=== PATIENT | female | born 1990 | race Caucasian/White ===

== ENCOUNTER 2023-08-07 18:17 | Emergency (ER) | payer OTHER ==
[2023-08-07 18:29] VITALS: BP 104/60; PULSE 72; RESP 18; TEMP 98.5; BMI 34.0
[2023-08-07] MEDS ORDERED: ACETAMINOPHEN 500 MG TABLET (FP) ONE (20:29)
[2023-08-07 20:33] LABS: BASO % 3.7 % (0-2.0); HEMATOCRIT 36.4 % (32.4-45.2); HEMOGLOBIN 12.2 GM/dL (10.7-15.3); LYMPH % 24.6 % (8-40); MCH 27.9 pg (25.7-33.7); MCHC 33.4 g/dl (32.0-36.0); MEAN CELL VOLUME 83.4 fl (80-96); MEAN PLT VOLUME 9.6 fl (7.5-11.1); MONO % 5.4 % (3.8-10.2); NEUT % 65.3 % (42.8-82.8); PLATELET COUNT 194 10^3/uL (134-434); RBC 4.36 M/mm3 (3.60-5.2); RDW 14.9 % (11.6-15.6); WHITE BLOOD COUNT 7.4 K/mm3 (4.0-10.0)
[2023-08-07] MEDS: ACETAMINOPHEN 500 MG TABLET (FP) PO ONE (20:34)
[2023-08-07 20:56] LABS: POTASSIUM 4.4 mmol/L (3.5-5.1)
[2023-08-07 20:58] LABS: CALCIUM 8.9 mg/dL (8.5-10.1)
[2023-08-07 20:59] LABS: ALBUMIN 3.5 g/dl (3.4-5.0); BLOOD UREA NITROGEN 15.7 mg/dL (7-18); MAGNESIUM 2.3 mg/dL (1.8-2.4)
[2023-08-07 21:02] LABS: CREATININE 0.6 mg/dL (0.55-1.3)
[2023-08-07 21:03] LABS: BILIRUBIN,TOTAL 0.3 mg/dL (0.2-1); TOT PROT 7.5 g/dl (6.4-8.2)
[2023-08-07 21:22] LABS: EPI CELLS >36 /uL (0-25.1); HYALINE CASTS 0 /uL (0-3.1); PH,URINE 7.5 (5.0-8.0); URINE APPEARANCE CLEAR; URINE BACTERIA 618 /uL (0-1359); URINE BILIRUBIN NEGATIVE (NEGATIVE); URINE COLOR YELLOW; URINE GLUCOSE (UA) NEGATIVE (NEGATIVE); URINE KETONE NEGATIVE (NEGATIVE); URINE LEUK ESTERASE NEGATIVE (NEGATIVE); URINE NITRITE NEGATIVE (NEGATIVE); URINE PROTEIN NEGATIVE (NEGATIVE); URINE RBC 162 /uL (0-23.9); URINE UROBILINOGEN 0.2 mg/dL (0.2-1.0); URINE WBC 9 /uL (0-25.8)
== END 2023-08-07 21:32 | disposition home or self-care (01) ==
LOC: JER 18:17
DX: N83.292 Other ovarian cyst, left side (principal); R10.32 Left lower quadrant pain; M54.9 Dorsalgia, unspecified
CPT/HCPCS: 36415; 76830-TC; 80053; 81003; 83735; 84703; 85025; 86850; 86900; 86901; 87086; 99284-25